=== PATIENT | male | born 1985 | race Caucasian/White ===

== ENCOUNTER → 2025-09-14 | Outpatient (CLI) | payer OTHER, SELFPAY ==
--- OUTSIDE RECORDS SUMMARY | 2025-09-14 07:11 | XMS RPT_ITS | CCD ---
Author Organization [facility] Care Team Providers Care Verifier Operator Name Role Phone KEILY LAI Unavailable Unavailable KEILY LAI Unavailable Unavailable LORRI SORENSON Primary Care Physician LORRI SORENSON Attending LORRI Moore Primary Care RONNIE Clark DR Attending Unavailable RONNIE HERNANDEZ DR Primary Care Unavailable RONNIE HERNANDEZ DR Admitting Ronnie Mcdowell Referring Unavailable Ronnie Hernandez Attending Unavailable LORRI PIMENTEL Primary Care Unavailable Medications Current Medications Medication Drug Class(es) Dates Sig (Normalized) Sig (Original) sildenafil 50 mg oral tablet (1 source) Phosphodiesterase 5 Inhibitor Start: 10-18-2024 sildenafil 50 mg oral tablet Dose : 50 mg = 1 tab(s), Oral, qDay, PRN as needed for erectile dysfunction, # 30 tab(s), 0 Refill(s), Pharmacy: [facility]/pharmacy #[id number], Erectile dysfunction, 188, cm, 10/18/24 8:00:00 EST, Height, kg, 10/18/24 8:00:00 EST, Dosing Weight Start Date: 10/18/24 Status: Ordered Quantity: 30.0 Unit: tab(s) Repeat number: 1 Indication: Male erectile dysfunction, unspecified Problems Active Problems Problem Classification Problem Date Documented Da te Episodic/Chronic Open wounds of head; neck; and trunk (1 source) Laceration without foreign body of scalp, initial encounter; Translations: [Laceration without foreign body of scalp, initial encounter] Onset: 06-03-2018 Episodic Other nutritional; endocrine; and metabolic disorders (1 source) Body mass index 30+ - obesity 10-18-2024 Chronic Unclassified (1 source) Unknown / UNK(Unknown) Onset: 06-03-2018 Past or Other Problems Problem Classification Problem Date Documented Da te Episodic/Chronic Unclassified (1 source) Laceration without foreign body of scalp, initial encounter Onset: 06-03-2018 Results Test Name Value Interpretation Reference Range Facility .GFRon 11-10-2024 GFR 109 ml/min/1.73sqm Normal [facility] Comment on above: Result Comment: GFR Population mean for , Non- Americans Ages 20-29 = 116 mL/min/1.73 sq.m. Ages 30-39 = 107 mL/min/1.73 sq.m. Ages 40-49 = 99 mL/min/1.73 sq.m. Ages 50-59 = 93 mL/min/1.73 sq.m. Ages 60-69 = 85 mL/min/1.73 sq.m. Ages 70+ = 75 mL/min/1.73 sq.m. Chronic Kidney Disease: Less than 60 mL/min/1.73 square meters End Stage Renal Disease: Less than 15 mL/min/1.73 square meters Performed By: #### C MP, GFR, LIPID #### [address] [address] GFR Non- 90 ml/min/1.73sqm Normal [facility] Comment on above: Result Comment: GFR Population mean for , Non- Americans Ages 20-29 = 116 mL/min/1.73 sq.m. Ages 30-39 = 107 mL/min/1.73 sq.m. Ages 40-49 = 99 mL/min/1.73 sq.m. Ages 50-59 = 93 mL/min/1.73 sq.m. Ages 60-69 = 85 mL/min/1.73 sq.m. Ages 70+ = 75 mL/min/1.73 sq.m. Chronic Kidney Disease: Less than 60 mL/min/1.73 square meters End Stage Renal Disease: Less than 15 mL/min/1.73 square meters Performed By: #### C MP, GFR, LIPID #### [id number] [place], [place] [address] CMPon 11-10-2024 Albumin Level 4.3 G/dL Normal 3.5-5.0 [facility] Comment on above: Performed By: #### C MP, GFR, LIPID #### [address] [address] Albumin/Globulin [Mass ratio] 1.5 {ratio} Normal 1.1-2.5 [facility] Comment on above: Performed By: #### C MP, GFR, LIPID #### [address] [address] ALP [Catalytic activity/Vol] 62 U/L Normal 40-135 [facility] Comment on above: Performed By: #### C MP, GFR, LIPID #### [place] [id number] ALT [Catalytic activity/Vol] 41 U/L Normal 16-63 [facility] Comment on above: Performed By: #### C MP, GFR, LIPID #### [address] [address] AST [Catalytic activity/Vol] 21 U/L Normal 10-40 [facility] Comment on above: Performed By: #### C MP, GFR, LIPID #### [address] [address] Bili Total 0.5 mg/dL Normal 0.2-1.0 [facility] Comment on above: Result Comment: Use of this assay is not recommended for patients undergoing treatment with eltrombopag due to the potential for falsely elevated results. Performed By: #### C MP, GFR, LIPID #### [address] [address] BUN/Creatinine Ratio 13 ratio Normal 7-27 [facility] Comment on above: Performed By: #### C MP, GFR, LIPID #### [address] [address] Calcium [Mass/Vol] 9.4 mg/dL Normal 8.4-10.2 [facility] Comment on above: Performed By: #### C MP, GFR, LIPID #### [place] [id number] Chloride [Moles/Vol] 103 mmol/L Normal 98-107 [facility] Comment on above: Performed By: #### C MP, GFR, LIPID #### [address] [address] CO2 [Moles/Vol] 32 mmol/L High 22-29 [facility] Comment on above: Performed By: #### C MP, GFR, LIPID #### [address] [address] Creatinine [Mass/Vol] 0.93 mg/dL Normal 0.70-1.30 [facility] Comment on above: Result Comment: Test ing performed on Siemens Dimension EXL analyzer using a modified kinetic Sven technique. Performed By: #### C MP, GFR, LIPID #### [address] [address] Electrolyte Balance 6.0 mEq/L Normal 4.0-15.0 [facility] Comment on above: Performed By: #### C MP, GFR, LIPID #### [address] [address] Globulin 2.9 G/dL Normal [facility] Comment on above: Performed By: #### C MP, GFR, LIPID #### [address] [address] Glucose [Mass/Vol] 85 mg/dL Normal 70-105 [facility] Comment on above: Performed By: #### C MP, GFR, LIPID #### [address] [address] Potassium [Moles/Vol] 5.0 mmol/L Normal 3.5-5.1 [facility] Comment on above: Performed By: #### C MP, GFR, LIPID #### [address] [address] Sodium [Moles/Vol] 141 mmol/L Normal 136-145 [facility] Comment on above: Performed By: #### C MP, GFR, LIPID #### [address] [address] Total Protein 7.2 G/dL Normal 6.4-8.2 [facility] Comment on above: Performed By: #### C MP, GFR, LIPID #### [id number] [place], [place] [address] Urea nitrogen [Mass/Vol] 12 mg/dL Normal 7-18 [facility] Comment on above: Performed By: #### C MP, GFR, LIPID #### [id number] [place], [place] [address] LABORATORYOrdered By: SYSTEM SYSTEM on 11-10-2024 Albumin BCP dye [Mass/Vol] 4.3 G/dL Normal 3.5 - 5.0 G/dL AO ADM SS Albumin/Globulin [Mass ratio] 1.5 {ratio} Normal 1.1 - 2.5 ratio AO ADM SS ALP [Catalytic activity/Vol] 62 U/L Normal 40 - 135 U/L AO ADM SS ALT With P-5'-P [Catalytic activity/Vol] 41 U/L Normal 16 - 63 U/L AO ADM SS AST With P-5'-P [Catalytic activity/Vol] 21 U/L Normal 10 - 40 U/L AO ADM SS Bilirubin [Mass/Vol] 0.5 mg/dL Normal 0.2 - 1 .0 mg/dL AO ADM SS Comment on above: Interpretive Data: U se of this assay is not recommended for patients undergoing treatment with eltrombopag due to the potential for falsely elevated results. Calcium [Mass/Vol] 9.4 mg/dL Normal 8.4 - 10. 2 mg/dL AO ADM SS Chloride [Moles/Vol] 103 mmol/L Normal 98 - 10 7 mmol/L AO ADM SS CO2 [Moles/Vol] 32 mmol/L High 22 - 29 mmol/L AO ADM SS Creatinine [Mass/Vol] 0.93 mg/dL Normal 0.70 - 1.30 mg/dL AO ADM SS Comment on above: Interpretive Data: T esting performed on Siemens Dimension EXL analyzer using a modified kinetic Sven technique. Electrolyte Balance 6.0 mEq/L Normal 4.0 - 15 .0 mEq/L AO ADM SS GFR/1.73 sq M.predicted among blacks MDRD (S/P/Bld) [Vol rate/Area] 109 ml/min/1.73sqm Invalid Interpretation Code AO Chemistry S Comment on above: Interpretive Data: GFR Population mean for , Non- Americans Ages 20-29 = 116 mL/min/1.73 sq.m. Ages 30-39 = 107 mL/min/1.73 sq.m. Ages 40-49 = 99 mL/min/1.73 sq.m. Ages 50-59 = 93 mL/min/1.73 sq.m. Ages 60-69 = 85 mL/min/1.73 sq.m. Ages 70+ = 75 mL/min/1.73 sq.m. Chronic Kidney Disease: Less than 60 mL/min/1.73 square meters End Stage Renal Disease: Less than 15 mL/min/1.73 square meters GFR/1.73 sq M.predicted among non-blacks MDRD (S/P/Bld) [Vol rate/Area] 90 ml/min/1.73sqm Invalid Interpretation Code AO Chemistry S Comment on above: Interpretive Data: GFR Population mean for , Non- Americans Ages 20-29 = 116 mL/min/1.73 sq.m. Ages 30-39 = 107 mL/min/1.73 sq.m. Ages 40-49 = 99 mL/min/1.73 sq.m. Ages 50-59 = 93 mL/min/1.73 sq.m. Ages 60-69 = 85 mL/min/1.73 sq.m. Ages 70+ = 75 mL/min/1.73 sq.m. Chronic Kidney Disease: Less than 60 mL/min/1.73 square meters End Stage Renal Disease: Less than 15 mL/min/1.73 square meters Globulin 2.9 G/dL Invalid Interpretation Code AO ADM SS Glucose [Mass/Vol] 85 mg/dL Normal 70 - 105 mg/dL AO ADM SS Potassium [Moles/Vol] 5.0 mmol/L Normal 3.5 - 5.1 mmol/L AO ADM SS Protein [Mass/Vol] 7.2 G/dL Normal 6.4 - 8.2 G/dL AO ADM SS Sodium [Moles/Vol] 141 mmol/L Normal 136 - 145 mmol/L AO ADM SS Urea nitrogen [Mass/Vol] 12 mg/dL Normal 7 - 18 mg/dL AO ADM SS Urea nitrogen/Creatinine [Mass ratio] 13 ratio Normal 7 - 27 ratio AO ADM SS LABORATORYOrdered By: Ashley Mcfarlane on 11-10-2024 Cholesterol [Mass/Vol] 251 mg/dL High 0 - 200 mg/dL AO ADM SS Comment on above: Interpretive Data: C holesterol Reference Interval: Less than 200 Desirable 200-239 Borderline high risk 240 and above High risk Cholesterol in HDL [Mass/Vol] 68 mg/dL High 40 - 60 mg/dL AO ADM SS Cholesterol in LDL [Mass/Vol] 165 mg/dL High 0 - 130 mg/dL AO ADM SS Triglyceride [Mass/Vol] 88 mg/dL Normal 0 - 150 mg/dL AO ADM SS Comment on above: Interpretive Data: T riglyceride Reference Interval: Less than 150 Normal 150-199 Borderline high risk 200-499 High risk 500 or higher Very high risk LIPIDon 11-10-2024 Cholesterol [Mass/Vol] 251 mg/dL High 0-200 [facility] Comment on above: Result Comment: Chol esterol Reference Interval: Less than 200 Desirable 200-239 Borderline high risk 240 and above High risk Performed By: #### C MP, GFR, LIPID #### [address] [address] Cholesterol in HDL [Mass/Vol] 68 mg/dL High 40-60 [facility] Comment on above: Performed By: #### C MP, GFR, LIPID #### [address] [address] Cholesterol in LDL [Mass/Vol] 165 mg/dL High 0-130 [facility] Comment on above: Performed By: #### C MP, GFR, LIPID #### [address] [address] Triglyceride [Mass/Vol] 88 mg/dL Normal 0-150 [facility] Comment on above: Result Comment: Trig lyceride Reference Interval: Less than 150 Normal 150-199 Borderline high risk 200-499 High risk 500 or higher Very high risk Performed By: #### C MP, GFR, LIPID #### [address] [address] XR CHEST 2 VIEWSon 9 XR CHEST 2 VIEWS ORIGINAL XR CHEST 2 VIEWS CLINICAL STATEMENT: chest pain. COMPARISON: None FINDINGS: The cardiomediastinal contours are normal. There is no focal consolidation. There is no vascular congestion or pleural effusion. There is no pneumothorax. There are no degenerative changes noted. IMPRESSION: No acute cardiopulmonary process. I have personally reviewed the images of this examination and agree with the resident's findings and interpretation. Interpreted By: Bruce Delgado MD Preliminary Report By: Song Gorman DO Electronically Signed By: Bruce Delgado MD Dictated Date: 06/04/2019 2:28:22 PM Prelim Date: 06/04/2019 4:01:38 PM Sign Date: 06/04/2019 4:34:08 PM Normal [facility] ([place]) ED NOTEon 06-03-2018 ED NOTE HNO ID: [id number]: Magaly (Rn) Couch, RNService: Emergency MedicineAuthor Type: Registered NurseType: ED NotesFiled: 06/03/2018 12:22 PMNote Text:Patient c/o head laceration and injury after stepping up underneath a carand striking his head on a metal rail at 1145. No LOC. Unknown lasttetanus. Normal [facility] ED PROV NOTEon 06-03-2018 Protein mass conc HNO ID: [id number]: JEFF Robersonervice: Emergency MedicineAuthor Type: PhysicianType: ED Provider NotesFiled: 06/03/2018 12:41 PMNote Text:ED Provider NotePatient Name: Yared WarrenMRN: [id number] DATE: 06/03/18HistoryPatient presents with:Head InjuryPatient cut the top of his head after being under desk striking his headon a metal rail. Did not lose consciousness is not on blood thinners. Novomiting states he feels well.No past medical history on file.PAST SURGICAL HISTORYProcedure Laterality Date- DENTAL SURGERY HX wisdom teeth extractionNo family history on file.Social HistorySocial History Main Topics- Smoking status: Never Smoker- Smokeless tobacco: Never Used- Alcohol use Yes Comment: rarely- Drug use: No- Sexual activity: Not on fileALLERGIESNo Known AllergiesReview of SystemsAll other systems reviewed and are negative.Physical ExamBP 147/64 Pulse 72 Temp (Src) 97.3 (Temporal Artery) Resp 16 Ht 6'2 (1.88m) Wt 230 lb (104.3kg) SpO2 99% BMI 29.52 kg/(m2).Physical ExamConstitutional: He is oriented to person, place, and time. He appearswell-developed and well-nourished.HENT:Head : Normocephalic and atraumatic.Eyes: EOM are normal. Pupils are equal, round, and reactive to light.Neck: Normal range of motion. Neck supple.Neurological: He is alert and oriented to person, place, and time.Skin: Skin is warm and dry.There is a small 0.5 cm superficial laceration with no active bleeding onthe apex of the scalp.Nursing note and vitals reviewed.Diagnostic TestingED Labs Ordered and Reviewed - No data to displayLAC REPAIRDate/Time: 06/03/2018 12:40 PMPerformed by: KEILY LAI JAuthorized by: KEILY LAI JConsent: Consent obtained: Verbal Consent given by: Patient Risks discussed: Need for additional repair, nerve damage, poorcosmetic result, poor wound healing, retained foreign body, vasculardamage, pain and infection Alternatives discussed: No treatmentAnesthesia (see MAR for exact dosages): Anesthesia method: Topical applicationLaceration details: Location: Scalp Length (cm): 0.8 Depth (mm): 1Repair type: Repair type: SimplePre-procedure details: Preparation: Patient was prepped and draped in usual sterile fashionExploration: Wound exploration: wound explored through full range of motion Contaminated: noTreatment: Area cleansed with: Saline Amount of cleaning: Standard Irrigation solution: Sterile saline Visualized foreign bodies/material removed: noSkin repair: Repair method: Tissue adhesiveApproximation: Approximation: Close Vermilion border: alqy-[id number]-jlcuull re details: Patient tolerance of procedure: Tolerated well, no immediatecomplicationsED Course / Clinical ImpressionClinical Impressions as of Jun 03 1238Laceration of scalp, initial encounterMDM / Disposition / Plan We discussed bessy versus wound adhesive. The laceration is small andwell approximated at baseline just used a small amount wound adhesivetissue adhesive is counseled on wound care signs symptoms to follow-up.tdap updated.DispositionThe patient was discharged. Counseled patient regarding . As well as theneed for follow-up. Discharged home with verbal and written instructions. They were instructed to return as needed for persistent or worseningsymptoms or any new concerns.Condition at disposition is improved.SIGNATURE: Dionne Roberson MD06/03/18 1241 Normal [facility] Encounters Encounter Date Encounter Type Care Provider Facility Start: 09-14-2025 ambulatory Ronnie Keystone Facility: [facility] Start: 09-09-2025 Encounter for other preprocedural examination Ronnie [facility] Start: 09-09-2025 ambulatory RONNIE HERNANDEZ [facility] Start: 11-10-2024 End: 11-10-2024 ambulatory LORRI MARGARITO [employer] ACCOUNT EXECUTIVE Facility:[facility] Start: 11-10-2024 End: 11-10-2024 Patient encounter procedure LORRI MARGARITO [employer]PER[employer] SAL[employer] ACCOUNT EXECUTIVE [facility] Start: 06-03-2018 End: 06-03-2018 Emergency department patient visit KEILY LAI Facility:[facility] Procedures Date Procedure Procedure Detail Performing Clinician Hernia of abdominal cavity (disorder) LORRI MARGARITO [employer] SAL[employer] ACCOUNT EXECUTIVE Comment on above: umbilical Structure of wisdom tooth (body structure) LORRI MARGARITO [employer]PERVIS[employer] SALES ACCOUNT EXECUTIVE Vasectomy LORRI MARGARITO SUPERVIS[employer] SALES ACCOUNT EXECUTIVE Immunizations Immunization Date Immunization Notes Care Provider Fa cilivivi 07-04-2021 SARS-CoV-2 (COVID-19 ) mRNA-1273 vaccine; Translations: [Moderna COVID-19 Vaccine] LORRI MARGARITO SUPERVIS[employer] SAL[employer] ACCOUNT EXECUTIVE [facility] [place] Payers Date Payer Category Payer Self-pay 2024 Unknown [id number] 2024 Unknown [id number] 1985 Unknown [id number] 1985 Unknown [id number] Private Health Insurance [id number] Unknown [id number] Social History Date Type Detail Facility Start: 06-03-2019 Tobacco smoking status Never s moked tobacco (finding) [facility] Sexual Orientation [facility] Start: 05-15-2017 Sex Male (finding) [facility] Evaluation + Plan note Note Date & Type Note Facility Evaluation + Plan note No data available for this section [facility] Hospital Discharge instructions Note Date & Type Note Facility Hospital Discharge instructions No data available for this section [facility] Progress note Note Date & Type Note Facility Progress note No data available for this section [facility] Summary Purpose Family History No Family History Records FoundNo Family History Records FoundNo Family History Records Found No data available for this section No Family History Records FoundNo Family History Records FoundNo Family History Records Found Advance Directives No Advanced Directives Records FoundNo Advanced Directives Records FoundNo Advanced Directives Records FoundNo Advanced Directives Records FoundNo Advanced Directives Records FoundNo Advanced Directives Records Found Additional Source Comments (unrecognized sect ion and content) No Status Records FoundNo Status Records FoundNo Status Records FoundNo Status Records FoundNo Status Records FoundNo Status Records Found INFORMATION SOURCE (unrecogn ized section and content) DATE CREATED AUTHOR 06/03/2018 [facility] DATE CREATED AUTHOR AUTHOR'S ORGANIZ ATION 06/03/2018 [facility] DATE CREATED AUTHOR AUTHOR'S ORGANIZ ATION 06/04/2019 [facility] ([place]) DATE CREATED AUTHOR AUTHOR'S ORGANIZ ATION 11/16/2024 [facility] DATE CREATED AUTHOR AUTHOR'S ORGANIZ ATION [facility] DATE CREATED AUTHOR AUTHOR'S ORGANIZ ATION 09/11/2025 [facility] Patient Care team informatio n (unrecognized section and content) Care Team Personnel Name: LORRI PIMENTEL SUPERVISOR [employer] SAL[employer] ACCOUNT EXECUTIVE Position: [employer] Member Role: Primary Care Physician Address: [address], [place] [address] Telecom: Care Team Related Persons Name: JOSE MANUEL WARREN Name: DESTINY WARREN FOR RECORDS PERTAINING TO PATIENTS WHO ARE OR HAVE BEEN ENROLLED IN A CHEMICAL DEPENDENCY/SUBSTANCEABUSE PROGRAM, SOME INFORMATION MAY BE OMITTED. This clinical summary was aggregated from multiple sources. Caution should be exercised in using it in the provision of clinical care. This summary normalizes information from multiple sources, and as a consequence, information in this document may materially change the coding, format and clinical context of patient data. In addition, data may be omitted in some cases. CLINICAL DECISIONS SHOULD BE BASED ON THE PRIMARY CLINICAL RECORDS. [facility] [employer] [facility]. provides no warranty or guarantee of the accuracy or completeness of information in this document.
--- NOTE | 2025-09-14 07:13 | EKG12_ITS ---
Test Reason : PREOP Blood Pressure : */* mmHG Vent. Rate : 71 BPM Atrial Rate : 71 BPM P-R Int : 192 ms QRS Dur : 112 ms QT Int : 400 ms P-R-T Axes : 73 57 61 degrees QTcB Int : 434 ms Normal sinus rhythm Normal ECG Confirmed by Bruce Chaudhry ([id number]), design editor KAELA CLAUDIO ([id number]) on 09/14/2025 10:42:45 AM Referred By: Juan M Du Confirmed By: Bruce Chaudhry
[2025-09-14 08:45] LABS: Anion Gap 7 (5-15); BUN 18 mg/dL (4-19); BUN/Creat Ratio 19.4 RATIO (10-20); Calcium,Total 9.3 mg/dL (7.6-11.0); Carbon Dioxide 28.4 mmol/L (21.0-32.0); Chloride 105 mmol/L (98-108); Glucose 98 mg/dL (70-99); Potassium 3.9 mmol/L (3.3-5.1)
== END | disposition home or self-care (01) ==
LOC: PSN 07:07
PROVIDERS: PCP Nurse Practitioner Family; Referring Provider Orthopaedic Surgery; Visit Provider Orthopaedic Surgery
DX: Z01.818 Encounter for other preprocedural examination (principal)
CPT/HCPCS: 36415; 80048; 93005